=== PATIENT | male | born 1975 | race Caucasian/White ===

== ENCOUNTER 2018-01-06 04:07 | Inpatient (IN) | payer MEDICAID ==
[~2018-01-06] VITALS: Ht 182.9 cm; Wt 90.5 kg
[2018-01-06] MEDS ORDERED: HYDROcodone/acetaminophen 10/325mg tab PO ONE (04:55)
[2018-01-06] MEDS ORDERED: piperacillin/tazo 3.375gm/50ml 50 ML IV ONE (05:50)
[2018-01-06] MEDS ORDERED: TETanus/Pertussis (Acell)/Diphther VAC/PF (Tdap-Adult) 0.5ml syringe IM ONE (05:50)
[2018-01-06] MEDS ORDERED: BUPIVAcaine/PF 2.5 mg/ml (0.25%) 30ml vial IJ ONE (05:50)
[2018-01-06] MEDS ORDERED: normal saline 1000ML IV soln IV ONE (05:50)
[2018-01-06] MEDS ORDERED: vancomycin/NS 1 GM ADD-VANTAGE 250 ML IV ONE ×2 (05:50→13:14)
[2018-01-06 06:16] LABS: BASOPHILS # (AUTO) 0.1 X10'3 (0-0.2); BASOPHILS % (AUTO) 0.8 % (0-1); EOSINOPHILS # (AUTO) 0.3 X10'3 (0-0.9); EOSINOPHILS % (AUTO) 3.8 % (0-6); HEMATOCRIT 39.7 % (42.0-52.0); HEMOGLOBIN 13.8 g/dl (14.0-17.9); LYMPHOCYTES # (AUTO) 1.6 X10'3 (1.1-4.8); LYMPHOCYTES % (AUTO) 22.8 % (21-51); MEAN CORPUSCULAR HEMOGLOBIN 30.9 PG (27.0-31.0); MEAN CORPUSCULAR HGB CONC 34.7 % (33.0-36.5); MEAN CORPUSCULAR VOLUME 89.2 FL (78-98); MEAN PLATELET VOLUME 8.1 FL (7.4-10.4); MONOCYTES # (AUTO) 0.8 X10'3 (0-0.9); MONOCYTES % (AUTO) 11.8 % (2-12); NEUTROPHILS # (AUTO) 4.3 X10'3 (1.8-7.7); NEUTROPHILS % (AUTO) 60.8 % (42-75); PLATELET COUNT 152 X10'3 (140-440); RED BLOOD COUNT 4.45 X10'6 (4.70-6.10); RED CELL DISTRIBUTION WIDTH 13.2 % (11.5-14.5); WHITE BLOOD COUNT 7.1 X10'3 (4.5-11.0)
[2018-01-06 06:31] LABS: PARTIAL THROMBOPLASTIN TIME 29 SECONDS (22-32); PROTHROMBIN TIME 10.3 SECONDS (9.0-12.0)
[2018-01-06 06:34] LABS: ALANINE AMINOTRANSFERASE 46 U/L (12-78); ALBUMIN 3.5 G/DL (3.4-5.0); ALKALINE PHOSPHATASE 84 IU/L (46-116); ANION GAP 9 (8-16); ASPARTATE AMINO TRANSFERASE 34 U/L (10-37); BILIRUBIN,TOTAL 0.3 MG/DL (0.1-1.0); BLOOD UREA NITROGEN 17 MG/DL (7-18); BUN/CREATININE RATIO 21.3 (5.4-32.0); CALCIUM 8.6 MG/DL (8.5-10.1); CHLORIDE 106 MMOL/L (99-107); GLUCOSE 109 MG/DL (70-104); MAGNESIUM 1.9 MG/DL (1.5-2.4); POTASSIUM 3.6 MMOL/L (3.5-5.1); SODIUM 139 MMOL/L (135-145); TOTAL CARBON DIOXIDE 24.1 MMOL/L (24-32); eGFR > 90 ML/MIN
[2018-01-06] MEDS ORDERED: FLO0.4C PO (09:25)
[2018-01-06] MEDS ORDERED: FLU VACC QS2017-18 36MOS UP/PF 60 MCG/0.5 ML SYRINGE IMVAC ONE (09:35)
[2018-01-06] MEDS ORDERED: morphine 2 MG/ML inj. syringe IM ONE (14:15)
[2018-01-06 15:35] VITALS: BP 164/92
[2018-01-06] MEDS ORDERED: morphine 2 MG/ML inj. syringe IV PRN (17:15)
[2018-01-06] MEDS ORDERED: mag hydrox/Alum hydrox/simeth 30ml oral suspension PO PRN (18:20)
[2018-01-06] MEDS ORDERED: magnesium hydroxide 30ml (MOM) UD suspension PO PRN (18:20)
[2018-01-06] MEDS ORDERED: potassium Cl 40MEQ/NS 500ml 500 ML IV PRN ×2 (18:20)
[2018-01-06] MEDS ORDERED: ondansetron/PF 4mg/2ml inj IV PRN (18:20)
[2018-01-06] MEDS ORDERED: magnesium 4gm in 100ml NS 100 ML IV PRN (18:20)
[2018-01-06] MEDS ORDERED: acetaminophen 325mg tablet PO PRN (18:20)
[2018-01-06] MEDS ORDERED: potassium Cl 20 mEq SR tablet PO PRN ×2 (18:20)
[2018-01-06] MEDS ORDERED: magnesium 2GM in 50ml NS 50 ML IV PRN (18:20)
[2018-01-06] MEDS ORDERED: magnesium Cl slow-release 64mg tablet PO PRN (18:20)
[2018-01-06] MEDS ORDERED: morphine 2 MG/ML inj. syringe IV ONE (18:50)
[2018-01-06] MEDS: HYDROcodone/acetaminophen 5mg/325mg tablet PO PRN ×2 (19:32→23:49)
[2018-01-06 20:00] VITALS: BP 147/87
[2018-01-06] MEDS: vancomycin inj 1,250 MG in normal saline 250ml IV soln 250 ML IV SCH (20:48)
[2018-01-06] MEDS: tamsulosin 0.4mg capsule PO SCH (20:48)
[2018-01-06] MEDS: morphine 2 MG/ML inj. syringe IV PRN (20:49)
[2018-01-07] VITALS: BP 145/78
[2018-01-07] MEDS: vancomycin inj 1,250 MG in normal saline 250ml IV soln 250 ML IV SCH ×3 (04:33→20:18)
[2018-01-07] MEDS: morphine 2 MG/ML inj. syringe IV PRN ×4 (04:49→17:32)
[2018-01-07 05:31] LABS: BASOPHILS # (AUTO) 0.1 X10'3 (0-0.2); BASOPHILS % (AUTO) 0.7 % (0-1); EOSINOPHILS # (AUTO) 0.3 X10'3 (0-0.9); EOSINOPHILS % (AUTO) 3.7 % (0-6); HEMATOCRIT 40.8 % (42.0-52.0); HEMOGLOBIN 14.3 g/dl (14.0-17.9); LYMPHOCYTES # (AUTO) 1.6 X10'3 (1.1-4.8); LYMPHOCYTES % (AUTO) 19.3 % (21-51); MEAN CORPUSCULAR HEMOGLOBIN 31.1 PG (27.0-31.0); MEAN CORPUSCULAR HGB CONC 34.9 % (33.0-36.5); MEAN CORPUSCULAR VOLUME 88.9 FL (78-98); MONOCYTES # (AUTO) 0.7 X10'3 (0-0.9); MONOCYTES % (AUTO) 8.1 % (2-12); NEUTROPHILS # (AUTO) 5.7 X10'3 (1.8-7.7); NEUTROPHILS % (AUTO) 68.2 % (42-75); PLATELET COUNT 153 X10'3 (140-440); RED BLOOD COUNT 4.59 X10'6 (4.70-6.10); RED CELL DISTRIBUTION WIDTH 13.5 % (11.5-14.5); WHITE BLOOD COUNT 8.4 X10'3 (4.5-11.0)
[2018-01-07 05:49] LABS: ALBUMIN 3.1 G/DL (3.4-5.0); ANION GAP 6 (8-16); BLOOD UREA NITROGEN 10 MG/DL (7-18); BUN/CREATININE RATIO 12.5 (5.4-32.0); CALCIUM 8.7 MG/DL (8.5-10.1); CHLORIDE 104 MMOL/L (99-107); GLUCOSE 101 MG/DL (70-104); MAGNESIUM 1.6 MG/DL (1.5-2.4); SODIUM 138 MMOL/L (135-145); TOTAL CARBON DIOXIDE 27.8 MMOL/L (24-32); eGFR > 90 ML/MIN
[2018-01-07 07:00] VITALS: BP 136/78
[2018-01-07] MEDS: K and/or MAG REPLACEMENT MC SCH (07:15)
[2018-01-07] MEDS: HYDROcodone/acetaminophen 5mg/325mg tablet PO PRN ×3 (07:42→20:20)
[2018-01-07] MEDS ORDERED: LIDOcaine 1% 30ml vial IJ ONE (11:25)
[2018-01-07 20:00] VITALS: BP 128/83
[2018-01-07] MEDS: lactobacillus rhamnosus 10,000 MMU CELLS/CAPSULE PO SCH (20:17)
[2018-01-07] MEDS: tamsulosin 0.4mg capsule PO SCH (20:17)
[2018-01-07] MEDS ORDERED: VANCOMYCIN LEVEL IV ONE (20:30)
[2018-01-08] VITALS: BP 121/73
[2018-01-08] MEDS: HYDROcodone/acetaminophen 5mg/325mg tablet PO PRN ×4 (04:25→21:09)
[2018-01-08] MEDS: vancomycin inj 1,250 MG in normal saline 250ml IV soln 250 ML IV SCH (04:25)
[2018-01-08 05:03] LABS: BASOPHILS # (AUTO) 0.1 X10'3 (0-0.2); BASOPHILS % (AUTO) 0.7 % (0-1); EOSINOPHILS # (AUTO) 0.3 X10'3 (0-0.9); HEMATOCRIT 44.2 % (42.0-52.0); HEMOGLOBIN 15.1 g/dl (14.0-17.9); LYMPHOCYTES # (AUTO) 1.8 X10'3 (1.1-4.8); LYMPHOCYTES % (AUTO) 24.3 % (21-51); MEAN CORPUSCULAR HEMOGLOBIN 30.5 PG (27.0-31.0); MEAN CORPUSCULAR HGB CONC 34.2 % (33.0-36.5); MEAN CORPUSCULAR VOLUME 89.2 FL (78-98); MEAN PLATELET VOLUME 7.6 FL (7.4-10.4); MONOCYTES # (AUTO) 0.7 X10'3 (0-0.9); MONOCYTES % (AUTO) 9.1 % (2-12); NEUTROPHILS # (AUTO) 4.5 X10'3 (1.8-7.7); NEUTROPHILS % (AUTO) 61.9 % (42-75); PLATELET COUNT 182 X10'3 (140-440); RED BLOOD COUNT 4.96 X10'6 (4.70-6.10); RED CELL DISTRIBUTION WIDTH 13.6 % (11.5-14.5); WHITE BLOOD COUNT 7.3 X10'3 (4.5-11.0)
[2018-01-08 05:33] LABS: ALBUMIN 3.1 G/DL (3.4-5.0); ANION GAP 8 (8-16); BLOOD UREA NITROGEN 14 MG/DL (7-18); BUN/CREATININE RATIO 17.5 (5.4-32.0); CALCIUM 8.8 MG/DL (8.5-10.1); CHLORIDE 103 MMOL/L (99-107); GLUCOSE 102 MG/DL (70-104); MAGNESIUM 1.8 MG/DL (1.5-2.4); POTASSIUM 3.7 MMOL/L (3.5-5.1); SODIUM 140 MMOL/L (135-145); TOTAL CARBON DIOXIDE 28.8 MMOL/L (24-32); eGFR > 90 ML/MIN
[2018-01-08] MEDS: K and/or MAG REPLACEMENT MC SCH (06:33)
[2018-01-08 07:30] VITALS: BP 146/69
[2018-01-08] MEDS: lactobacillus rhamnosus 10,000 MMU CELLS/CAPSULE PO SCH ×2 (08:08→21:09)
[2018-01-08 12:13] VITALS: BP 119/69
[2018-01-08 20:00] VITALS: BP 121/72
[2018-01-08] MEDS: tamsulosin 0.4mg capsule PO SCH (21:09)
[2018-01-08] MEDS: heparin, porcine 5000 units/ml vial SQ SCH (21:10)
[2018-01-09] VITALS: BP 120/75
[2018-01-09] MEDS: HYDROcodone/acetaminophen 5mg/325mg tablet PO PRN ×2 (03:06→07:24)
[2018-01-09 05:21] LABS: BASOPHILS % (AUTO) 0.4 % (0-1); EOSINOPHILS # (AUTO) 0.3 X10'3 (0-0.9); EOSINOPHILS % (AUTO) 3.7 % (0-6); HEMATOCRIT 44.2 % (42.0-52.0); HEMOGLOBIN 15.5 g/dl (14.0-17.9); LYMPHOCYTES # (AUTO) 1.6 X10'3 (1.1-4.8); LYMPHOCYTES % (AUTO) 21.4 % (21-51); MEAN CORPUSCULAR HEMOGLOBIN 30.9 PG (27.0-31.0); MEAN CORPUSCULAR VOLUME 88.3 FL (78-98); MEAN PLATELET VOLUME 7.5 FL (7.4-10.4); MONOCYTES # (AUTO) 0.7 X10'3 (0-0.9); MONOCYTES % (AUTO) 9.7 % (2-12); NEUTROPHILS # (AUTO) 4.8 X10'3 (1.8-7.7); NEUTROPHILS % (AUTO) 64.8 % (42-75); PLATELET COUNT 190 X10'3 (140-440); RED BLOOD COUNT 5.01 X10'6 (4.70-6.10); RED CELL DISTRIBUTION WIDTH 13.5 % (11.5-14.5); WHITE BLOOD COUNT 7.4 X10'3 (4.5-11.0)
[2018-01-09 05:28] LABS: ANION GAP 7 (8-16); BLOOD UREA NITROGEN 16 MG/DL (7-18); BUN/CREATININE RATIO 21.9 (5.4-32.0); CALCIUM 8.9 MG/DL (8.5-10.1); CHLORIDE 105 MMOL/L (99-107); CREATININE 0.73 MG/DL (0.60-1.10); GLUCOSE 105 MG/DL (70-104); MAGNESIUM 1.8 MG/DL (1.5-2.4); POTASSIUM 3.9 MMOL/L (3.5-5.1); SODIUM 142 MMOL/L (135-145); TOTAL CARBON DIOXIDE 29.6 MMOL/L (24-32); eGFR > 90 ML/MIN
[2018-01-09] MEDS: K and/or MAG REPLACEMENT MC SCH (06:38)
[2018-01-09 07:18] VITALS: BP 127/82
[2018-01-09] MEDS: lactobacillus rhamnosus 10,000 MMU CELLS/CAPSULE PO SCH (07:24)
[2018-01-09] MEDS: heparin, porcine 5000 units/ml vial SQ SCH (07:25)
[2018-01-09 11:15] VITALS: BP 124/70
[2018-01-09] MEDS ORDERED: IBUP-1984 PO (12:23)
[2018-01-09] MEDS ORDERED: HYDR50CA PO (12:23)
[2018-01-09] MEDS ORDERED: DOXY-200 PO (12:23)
[2018-01-09] MEDS ORDERED: VANCOMYCIN LEVEL IV NR (12:30)
== END 2018-01-09 14:15 | disposition home or self-care (01) | DRG 384 ==
LOC: ER 04:07 → ED HOLD 13:06 → EDBEDREQ 13:45 → SUR 3N 15:28
PROVIDERS: ADMIT Internal Medicine; ATTEND Family Medicine
PROC: 0J9K0ZX Drainage of Left Hand Subcutaneous Tissue and Fascia, Open Approach, Diagnostic (ICD-10-PCS; principal; 2018-01-07)
DX: S61.213A Laceration without foreign body of left middle finger without damage to nail, initial encounter (principal); L02.512 Cutaneous abscess of left hand; L03.012 Cellulitis of left finger; M65.842 Other synovitis and tenosynovitis, left hand; T23.022A Burn of unspecified degree of single left finger (nail) except thumb, initial encounter; S61.211A Laceration without foreign body of left index finger without damage to nail, initial encounter; W26.0XXA Contact with knife, initial encounter; Z23 Encounter for immunization; Y93.89 Activity, other specified; Y92.89 Other specified places as the place of occurrence of the external cause; Y99.8 Other external cause status; Z79.899 Other long term (current) drug therapy
CPT/HCPCS: 36415; 80048; 80053; 80202; 83605; 83735; 84145; 85025; 85610; 85730; 87040; 87070; 87077; 87186; 90471; 90472; 90715; 96361; 96365; 96368; 99285; A6266; A6449; J1644; J2270; J2543; J3370; J3490; J7030; Q2037

== ENCOUNTER 2023-09-30 19:19 | Emergency (ER) | payer MEDICAID ==
[~2023-09-30] VITALS: Ht 182.9 cm; Wt 93.2 kg
[~2023-09-30 19:19] MED LIST: FLO0.4C PO; HYDR50CA PO
[2023-09-30] MEDS ORDERED: sulfamethoxazole/trimethoprim DS (800/160mg) tablet PO ONE (22:10)
[2023-09-30] MEDS ORDERED: SULF1TAB49 PO (22:24)
[2023-09-30 22:35] VITALS: BP 101/72; PULSE 102; RESP 18; TEMP 98.3; O2SAT 94
== END 2023-09-30 22:42 | disposition home or self-care (01) ==
LOC: ER 19:20
DX: M79.641 Pain in right hand (principal); L98.9 Disorder of the skin and subcutaneous tissue, unspecified; B95.8 Unspecified staphylococcus as the cause of diseases classified elsewhere
CPT/HCPCS: 73130; 87070; 87075; 99284; A6222; 87077; 87186; A6446

== ENCOUNTER 2023-11-27 17:54 | Emergency (ER) | payer SELFPAY ==
[~2023-11-27] VITALS: Ht 185.4 cm; Wt 90.9 kg
[2023-11-27] MEDS ORDERED: CLIN300C97 PO (19:28)
[2023-11-27 19:38] VITALS: BP 122/70; PULSE 80; RESP 16; TEMP 98.1; O2SAT 98
== END 2023-11-27 20:09 | disposition home or self-care (01) ==
LOC: ER 17:55
DX: L02.512 Cutaneous abscess of left hand (principal); Z79.899 Other long term (current) drug therapy
CPT/HCPCS: 10060; 26010; 99283; A6449

== ENCOUNTER 2024-02-20 15:22 | Emergency (ER) | payer MEDICAID ==
[2024-02-20 15:25] VITALS: BP 116/77; PULSE 107; RESP 17; TEMP 98.1; O2SAT 97
[2024-02-20] MEDS ORDERED: NAPR-56 PO (15:40)
[2024-02-20] MEDS ORDERED: DOXY-1 PO (15:40)
== END 2024-02-20 15:48 | disposition home or self-care (01) ==
LOC: ER 15:23
DX: K04.7 Periapical abscess without sinus (principal); Z79.899 Other long term (current) drug therapy
CPT/HCPCS: 99283

== ENCOUNTER 2025-06-19 14:37 | Emergency (ER) | payer MEDICAID ==
[~2025-06-19] VITALS: Ht 182.9 cm; Wt 77.7 kg
[~2025-06-19 14:37] MED LIST changes: -FLO0.4C PO; +TAMS-55 PO
[2025-06-19 14:42] VITALS: BP 116/85; PULSE 101; RESP 17; O2SAT 98
--- NOTE | 2025-06-19 15:08 | Physician Documentation ---
History of Present Illness ~ Chief Complaint: Finger pain Stated Complaint: FINGER PAIN Time Seen by MD: 15:11 OK to notify your PCP?: Yes Primary Medical Doctor: Rey Nascimento MD Source: patient Mode of Arrival: POV Exam Limitations: no limitations HPI 49-year-old male presents for infection to his right index finger after a crush injury to finger. He was seen at urgent care a couple of days ago and they lanced the wound and put him on Bactrim. The abscess seems to have filled back up and is very painful despite antibiotics. Tetanus within 5 years: Yes Medication Reconciliation Allergies: Coded Allergies: No Known Allergies (Unverified , 02/20/24) Scheduled Doxycycline Monohydrate (Doxycycline Monohydrate), 1 CAP PO Q12H Hydroxyzine Pamoate (Vistaril), 50 MG PO QID PRN Tamsulosin Hcl* (Flomax*), 1 CAP PO DAILY, (Reported) Past Medical History Past Medical History: *INFECTIOUS DZ* Past Surgical History: no surgical history Lives In: Home Review of Systems All Other Systems at this time: Reviewed and Negative Physical Exam Vital Signs: RN Vital Signs have been reviewed: Yes, Temperature: 97.3, Source: Temporal, Heart Rate: 101, Respiratory Rate: 17, BP: 116/85, Pulse Oximetry: 98, Weight: 77.690 Pulse Oximetry Reflects: adequate oxygenation Physical Exam General: Alert, no distress. HEENT: No injection, moist mucous membranes. Neck: Full range of motion. Respiratory: No respiratory distress, equal chest rise and fall. Chest: No accessory muscle use. Cardiovascular: Regular rate and rhythm. Gastrointestinal: Nondistended. Extremities: Right index finger swelling, pain and redness with open abscess to proximal phalange. Neurologic: Oriented x4. Psychiatric: Normal mood and affect. Skin: Normal color, warm and dry. Procedures I&D Procedure : Site: right index finger Procedure Note Performed I and D to patient's right index finger after soaking in warm water. Very little discharge came out which was bloody no purulent discharge noted so culture was not obtained. Patient tolerated well. Progress Results/Orders Reviewed/noted all lab results: Yes Results/Orders Orders - CARIN MÁRQUEZ SOFTWARE DEVELOPER MANAGER Finger(S) (06/19/25 15:05) * Additional Wound Care Orders (06/19/25 17:10) Completed Orders - CARIN MÁRQUEZ SOFTWARE DEVELOPER MANAGER Finger(S) (06/19/25 15:05) Acetaminophen 325mg Tablet (Tylenol Tabl (06/19/25 15:05) Ibuprofen Tablet (Motrin Tablet) (06/19/25 15:05) Lidocaine 1% W/Epi 1:100,000 (Xylocaine (06/19/25 17:10) Doxycycline 100mg Capsule (Vibramycin 10 (06/19/25 19:12) Medications Received in ER Medications (Trade) Dose Ordered Sig/Stanley Route PRN Reason Start Time Stop Time Status Last Admin Dose Admin (Tylenol tablet) 650 mg ONCE ONCE PO 06/19/25 15:05 06/19/25 15:10 DC 06/19/25 15:54 650 MG (Motrin tablet) 400 mg ONCE ONCE PO 06/19/25 15:05 06/19/25 15:10 DC 06/19/25 15:54 400 MG Vital Signs 06/19/25 06/19/25 14:42 19:17 Temp 97.3 97.3 Pulse 101 Resp 17 B/P (MAP) 116/85 Pulse Ox 98 EKG/XRAY/CT/US/VASC/MRI Bone/Soft Tissue X-Ray (Spine) : Interpreted By: self Additional Comment right index finger X-ray as interpreted by me; no joint effusion, no acute fracture, no dislocation, or foreign body. Medical Decision Making Additional info obtained from: family Findings 49-year-old male presents with right index finger pain, swelling and redness for the past few days after crushing his finger between a box and a wood plank. He was seen at urgent care 2 days ago where they did a I and D and placed him on 10 days Bactrim. He states that finger was decreased in size after the drainage but then worsened over the past 2 days. He states that it looks worse now than when he originally presented to urgent care. He does have a history of MRSA. The finger x-ray shows no acute fracture or foreign body. I discussed this case with Dr. Sterling who examined the patient as well. We all discussed the options for treatment such as redo the incision and drainage, obtain a wound culture and place on different antibiotics to be discharged home or to admit to the hospital for IV antibiotics. Patient opted for the outpatient approach and does not want to be admitted at this time. We discussed that if this option does not work and gets worse in the next couple of days and he will need to return for admission for IV antibiotics. Dr. Del Valle was oncoming MD who examined pt finger prior to I&D, recommends starting doxycycline. Had a wound culture done 2 years ago for an infection in the exact same finger and he was resistant to Bactrim. So we discussed that he needs to stop taking the Bactrim as he is likely going to be resistant to it again. Completed I&D with scant bloody discharge but no purulent drainage to culture. First dose of doxycycline given in the department and I sent rx to pharmacy. General Diff Dx:Considerations: Include: Hematoma, Neurovascular injury, Open fracture Finger Diff Dx:Considerations: Include: Fracture Departure Disposition: 01 HOME / SELF CARE / HOMELESS Impression: Primary Impression: Abscess Condition: Stable Discharge Instructions: Abscess/Boil Additional Instructions: Keep wound clean and dry. It may continue to drain which is good. Start taking the doxycycline tomorrow morning and stop taking your Bactrim prescription., as you were resistant last time. If you notice any worsening of the wound or redness/streaking up the arm please return as you may need IV antibiotics and admission. Referrals: NO PRIMARY CARE PROVIDER (PCP) Prescriptions Doxycycline Monohydrate (Doxycycline Monohydrate) 100 Mg Capsule 1 CAP PO Q12H for 10 Days, #20 CAP Prov: CARIN MÁRQUEZ 06/19/25 Education Educated: Patient Educated regarding: diagnosis, treatment, prognosis, need for follow up Additional Comment Medical Screen Exam This patient recieved a medical screening examination. After reviewing the individual's medical complaints with presenting symptoms and performing an appro priate physical examination, it was determined that no immediate life- threatening emergency medical condition is present. This individual is also not a women having contractions. Signature Scribe Signature: . Attestation: Scribed for Carin Márquez by Carin Medrano NP . 06/19/25 19:18 Parts of this note were created using [employer] voice recognition software program. While efforts were made to correct any mistakes made by this voice recognition software program, nonsensical phrases may remain in this note. In addition, there may be errors and syntax, grammar, content and spelling. CARIN MÁRQUEZ [facility] Jun 19, 2025 15:08
[2025-06-19] MEDS: ibuprofen tablet 400 MG TABLET PO ONE (15:54)
--- NOTE | 2025-06-19 16:33 | RADIOLOGY REPORT ---
CLINICAL INDICATION: Trauma, pain TECHNIQUE: 3 radiographic views of the right 2nd digit were obtained. Comparison: None FINDINGS/IMPRESSION: There is no evidence of acute fracture or dislocation. The visualized joint space is well maintained. The alignment is anatomical. There is no radiopaque foreign body.
[2025-06-19] MEDS: LIDOcaine 1% W/epiNEPHrine 1:100,000 20ml vial IJ STA (17:37)
[2025-06-19] MEDS ORDERED: DOXY-460 PO (19:13)
[2025-06-19 19:17] VITALS: TEMP 97.3
[2025-06-19] MEDS: DOXYCYCLINE 100MG CAPSULE PO STA (19:37)
== END 2025-06-19 19:39 | disposition home or self-care (01) ==
LOC: ER 14:37
DX: L02.511 Cutaneous abscess of right hand (principal); Z79.899 Other long term (current) drug therapy
CPT/HCPCS: 10060; 26010; 73140; 99284

== ENCOUNTER 2025-06-23 17:26 | Inpatient (IN) | payer MEDICAID ==
[~2025-06-23] VITALS: Ht 188 cm; Wt 100.0 kg
[~2025-06-23 17:26] MED LIST changes: +DOXY-460 PO
--- NOTE | 2025-06-23 19:59 | Physician Documentation ---
History of Present Illness ~ Chief Complaint: Wound Re-Check Stated Complaint: RE-EVAL Time Seen by MD: 19:01 Primary Medical Doctor: Rey Nascimento MD HPI Patient is Seen today with complaints of worsening pain and swelling and redness of his right index finger. Patient states he sustained a crush type injury to his right index finger about nine days ago. Couple of days after that he developed infection like symptoms with redness and swelling and warmth of his right index finger. Patient was started on antibiotics about 3-5 days ago without any improvement of symptoms and patient states his pain and swelling and redness has actually gotten worse. Patient denies any fevers or chills. He has no other concern or complaint at this time. Tetanus within 5 years?: Yes Medication Reconciliation Allergies: Coded Allergies: No Known Allergies (Unverified , 02/20/24) Miscellaneous Medications Home Med List (No Home Medications), (Reported) Discontinued Medications Doxycycline Monohydrate (Doxycycline Monohydrate), 1 CAP PO Q12H Discontinued Reason: completed med therapy Hydroxyzine Pamoate (Vistaril), 50 MG PO QID PRN Discontinued Reason: completed med therapy Tamsulosin Hcl* (Flomax*), 1 CAP PO DAILY, (Reported) Discontinued Reason: Out of medication Past Medical History Past Medical History: *INFECTIOUS DZ* Past Surgical History: no surgical history Lives In: Home Review of Systems Constitutional: Denies: chills, fever, weakness Eyes: Denies: pain, blurred vision ENT: Denies: ear pain, nose pain, throat pain, mouth pain Respiratory: Denies: cough, shortness of breath Cardiovascular: Denies: chest pain, palpitations Gastrointestinal: Denies: abdominal pain, nausea, vomiting Genitourinary: Denies: burning, dysuria Male Genitalia: Denies: penile discharge, testicular pain Neurological: Denies: headache, dizziness Musculoskeletal: Denies: pain, swelling Integumentary: Denies: rash, lesions Allergic/Immunologic: Denies: hives, itching Hematologic/Lymphatic: Denies: no symptoms reported Psychiatric: Denies: depression, anxiety Physical Exam Vital Signs: Temperature: 98.2, Source: Oral, Heart Rate: 94, Respiratory Rate: 14, BP: 128/87, Pulse Oximetry: 98, Weight: 100.000 Oxygen Flow Rate: 0 Physical Exam General: Awake and Alert, no acute distress. HEENT: Conjunctiva pink, Sclera clear, Mucus Membranes moist. Neck: Supple without masses and tenderness. Resp: Unlabored. Lungs clear to auscultation bilaterally. Heart: Regular Rate and rhythm, normal S1 and S2 without murmur, rub or gallop. Musculoskeletal: Patient on exam has significant sausage finger of the right index finger with significant swelling and erythema and warmth and purulent drainage from the ulnar aspect of the right index finger. Patient has open draining purulent drainage from middle and proximal phalanx of right index finger. Patient has tenderness to palpation proximally of the flexor tendon. Patient has decreased light touch sensation distally of the right index finger. Extremities: No cyanosis,clubbing or edema. Skin: Warm and Dry. Progress Results/Orders Results/Orders Orders - YOLIS CRUMP PAC Saline Lock (06/23/25 ) Piperacillin/Tazo 3.375gm/50ml (Zosyn 3. (06/23/25 19:58) Culture Blood (06/23/25 19:58) Page Hospitalist (06/23/25 20:24) Fill Out Med Reconciliation (06/23/25 20:24) Completed Orders - YOLIS CRUMP PAC Vancomycin*Pharmacy To Dose* (Vancomycin (06/23/25 19:58) Ketorolac Trometh 30mg/Ml Vial (Toradol (06/23/25 19:58) Acetaminophen 1,000mg/100ml Iv (Ofirmev (06/23/25 19:58) Cbc/Diff (06/23/25 19:58) MG (06/23/25 19:58) Procalcitonin (06/23/25 19:58) BMP (06/23/25 19:58) Lacticsepsis (06/23/25 19:58) Vancomycin/Ns 1 Gm Add-Forreston (Vancomyc (06/23/25 21:00) Medications Received in ER Medications (Trade) Dose Ordered Sig/Stanley Route PRN Reason Start Time Stop Time Status Last Admin Dose Admin (Toradol inj. 30mg/ml) 30 mg ONCE STAT IV 06/23/25 19:58 06/23/25 20:10 DC 06/23/25 21:24 30 MG Acetaminophen 100 ml @ 400 mls/hr ONCE STAT IV 06/23/25 19:58 06/23/25 20:12 DC 06/23/25 21:24 400 MLS/HR Vancomycin HCl 250 ml @ 166 mls/hr ONCE ONCE IV 06/23/25 21:00 06/23/25 22:30 DC 06/23/25 22:34 166 MLS/HR Vital Signs 06/23/25 17:42 Temp 98.2 Pulse 94 Resp 14 B/P (MAP) 128/87 Pulse Ox 98 O2 Flow Rate 0 Laboratory Tests Test 06/23/25 20:06 06/23/25 20:09 White Blood Count 6.8 Red Blood Count 4.84 Hemoglobin 14.7 Hematocrit 42.5 Mean Corpuscular Volume 87.7 Mean Corpuscular Hemoglobin 30.4 Mean Corpuscular Hemoglobin Concent 34.7 Red Cell Distribution Width 13.4 Platelet Count 270 Mean Platelet Volume 7.1 L Neutrophils (%) (Auto) 57.4 Lymphocytes (%) (Auto) 29.6 Monocytes (%) (Auto) 9.3 Eosinophils (%) (Auto) 2.5 Basophils (%) (Auto) 1.2 H Neutrophils # (Auto) 3.9 Lymphocytes # (Auto) 2.0 Monocytes # (Auto) 0.6 Eosinophils # (Auto) 0.2 Basophils # (Auto) 0.1 CBC Comment Sodium Level 138 Potassium Level 3.6 Chloride Level 102 Carbon Dioxide Level 29.8 Anion Gap 6 L Blood Urea Nitrogen 15 Creatinine 0.83 Estimated GFR/1.73 m2 > 90 BUN/Creatinine Ratio 18.1 Glucose Level 98 Calcium Level 9.0 Magnesium Level 2.0 Albumin 3.4 Procalcitonin < 0.05 Chemistry Comments Lactic Acid Level 1.3 Microbiology Date/Time Source Procedure Growth Status 06/23/25 20:20 Blood Iv Start Blood Culture - Preliminary NEGATIVE (LESS THAN 24 HOURS) Resulted Medical Decision Making Findings Patient is Seen today with complaints of worsening pain and swelling and redness of his right index finger. Patient states he sustained a crush type injury to his right index finger about nine days ago. Couple of days after that he developed infection like symptoms with redness and swelling and warmth of his right index finger. Patient was started on antibiotics about 3-5 days ago without any improvement of symptoms and patient states his pain and swelling and redness has actually gotten worse. Patient denies any fevers or chills. He has no other concern or complaint at this time. I did consult with Dr. Colindres the instrument specialist surgeon on-call today and he recommended patient be seen by Dr. Coats the hand surgeon tomorrow. Patient was admitted to the hospital today and hospitalist was consulted. Patient was started on Zosyn and vancomycin dosed by the pharmacist. IV was started and Tylenol and Toradol administered IV. Digital block with lidocaine without epinephrine was performed by myself today of the affected finger and after which wound was cleansed by nursing staff and then dressed. Departure Disposition: ADMITTED INPATIENT Admitted to Inpatient Unit: to hospitalist Admission Level of Care: Med/Surg with Tele Impression: Primary Impression: Cellulitis Qualified Codes: L03.113 - Cellulitis of right upper limb Condition: Improved Additional Instructions: I did consult with Dr. Colindres the instrument specialist surgeon on-call today and he recommended patient be seen by Dr. Coats the hand surgeon tomorrow. Patient was admitted to the hospital today and hospitalist was consulted. Patient was started on Zosyn and vancomycin dosed by the pharmacist. IV was started and Tylenol and Toradol administered IV. Digital block with lidocaine without epinephrine was performed by myself today of the affected finger and after which wound was cleansed by nursing staff and then dressed. Referrals: NO PRIMARY CARE PROVIDER (PCP) Signature Scribe Signature: No scribe Attestation: No scribe YOLIS CRUMP PAC Jun 23, 2025 19:59
[2025-06-23 20:15] LABS: MEAN PLATELET VOLUME 7.1 FL (7.4-10.4); RED CELL DISTRIBUTION WIDTH 13.4 % (11.5-14.5)
[2025-06-23 20:29] LABS: CREATININE 0.83 MG/DL (0.60-1.10); TOTAL CARBON DIOXIDE 29.8 MMOL/L (24-32); eCRCL 117 ML/MIN; eGFR > 90 ML/MIN
[2025-06-23] MEDS ORDERED: potassium Cl 20 mEq SR tablet PO PRN (21:10)
[2025-06-23] MEDS ORDERED: mag hydrox/Alum hydrox/simeth 30ml oral suspension PO PRN (21:10)
[2025-06-23] MEDS ORDERED: potassium Cl 40MEQ/1/2NS 520ml 520 ML IV PRN (21:10)
[2025-06-23] MEDS ORDERED: ondansetron/PF 4mg/2ml inj IV PRN (21:10)
[2025-06-23] MEDS ORDERED: magnesium Cl slow-release 64mg tablet PO PRN (21:10)
[2025-06-23] MEDS ORDERED: magnesium sulf-water 4G/100mL 100 ML IV PRN (21:10)
[2025-06-23] MEDS ORDERED: magnesium sulf-water 2g/50mL 50 ML IV PRN (21:10)
[2025-06-23] MEDS: piperacillin/tazo 3.375gm/50ml 50 ML IV STA (21:17)
[2025-06-23] MEDS: acetaminophen 1,000mg/100ml IV 100 ML IV STA (21:24)
[2025-06-23] MEDS: ketorolac trometh 30MG/ML vial 30 MG/ML VIAL IV STA (21:24)
[2025-06-23] MEDS: piperacillin/tazo 3.375gm/50ml 50 ML IV ONE (21:57)
--- NOTE | 2025-06-23 22:15 | HISTORY AND PHYSICAL-Residence ---
History & Physical Providers to CC Resident Creating Document: CA BRICENO RES ~ History of Present Illness Primary Medical Doctor: Rey Nascimento MD Reason for Admit\Complaint: RIGHT INDEX FINGER CELLULITIS History of Present Illness 49-year-old male with no significant past medical history presented to the ED with chief complaint of worsening pain redness and swelling of the right index finger for the past one week. He injured his right index finger last Saturday when he smashed in between boxes, he has been to urgent care and was given antibiotics with minimal relief, came to [facility] ED on Saturday I&D was done and was discharged on doxycycline. His symptoms did not improve, swelling and redness kept getting worse and hence he decided to come to the ED today. Complains of 8/10 pain. Denies associated symptoms like fever, chest pain, dizziness, chills, nausea, vomiting, diarrhea or constipation. Denies smoking or drinking alcohol. Follows up with primary care provider Celena at [facility]. Discussed advanced care directives and he wishes to be a full code. Allergies: Coded Allergies: No Known Allergies (Unverified , 02/20/24) Home Medications Home Medications Active Doxycycline Monohydrate 100 Mg Capsule 1 Cap PO Q12H 10 Days Vistaril (Hydroxyzine Pamoate) 50 Mg Capsule 50 Mg PO QID PRN 10 Days Reported Flomax* (Tamsulosin HCl) 0.4 Mg Cap.sr.24h 1 Cap PO DAILY 30 Days Past Medical History Past Medical History None Past Surgical History Surgical History Comment none Past Social History Lives In: Home ROS ROS Reviewed in full. All negative except for pertinent positive HPI. Constitutional: Denies: chills, fever, weakness Eyes: Denies: pain, blurred vision ENT: Denies: ear pain, nose pain, throat pain, mouth pain Respiratory: Denies: cough, shortness of breath Cardiovascular: Denies: chest pain, palpitations Gastrointestinal: Denies: abdominal pain, nausea, vomiting Genitourinary: Denies: burning, dysuria Male Genitalia: Denies: penile discharge, testicular pain Neurological: Denies: headache, dizziness Musculoskeletal: Denies: pain, swelling Integumentary: Denies: rash, lesions Allergic/Immunologic: Denies: hives, itching Hematologic/Lymphatic: Denies: no symptoms reported Psychiatric: Denies: depression, anxiety Exam Vitals: Vital Signs Date Time Temp Pulse Resp B/P (MAP) Pulse Ox O2 Delivery O2 Flow Rate FiO2 06/23/25 21:37 76 15 137/92 (107) 100 0 06/23/25 17:42 98.2 General: General: Awake and Alert, no acute distress. HEENT: Conjunctiva pink, Sclera clear, Mucus Membranes moist. Neck: Supple without masses and tenderness. Resp: Unlabored. Equal breath sounds bilaterally. Heart: Regular rhythm, normal S1 and S2, no rub, murmur or gallop. Abdomen: Soft and non tender no organomegaly. Normal bowel sounds x4 quadrant normoactive. No guarding or rigidity. Extremities: Right index finger erythema, edema with purulent discharge. Restricted range of motion of the right index finger. No cyanosis. ONLINE COMMUNITY MANAGER: No gross motor or sensory abnormalities. Skin: Warm and Dry. Diagnostic Data Last Recorded Lab Results: 06/24/25 0423 06/24/25 0423 Advance Care Planning Advanced Care plannin - 30 Minutes Additional Plan 49-year-old male with no significant past medical history presented to the ED with chief complaint of worsening pain redness and swelling of the right index finger for the past one week. Right index finger cellulitis Failed outpatient antibiotics History of MRSA in the past Labs unremarkable, lactic acid and procalcitonin normal limits Finger x-ray on 06/19/2025 no evidence of fracture/dislocation alignment anatomical. No Foreign body noted Follow up with CT right hand to look for underlying abscess Received IV vanc and Zosyn in the ED Continue IV vancomycin and zosyn Wound care consulted Follow up with wound cultures, blood cultures, UA UTox ED physician contacted Dr. Colindres, who recommended to contact Dr. Coats in a.m. Consult ortho in a.m. Awaiting med rec Code Status: Full code DVT prophylaxis: Lovenox Analgesia/sedation: Morphine/Sherman Line/tube: PIV GI prophylaxis: None Nutrition: Regular diet, NPO after midnight Prognosis: Guarded Disposition: Continue medical management. Ca Briceno MD. IM Resident PGY-3 Addendum I personally reviewed the chart, labs and imaging and reviewed the patient with the team. I agree with the assessment and plan as documented by the resident. Patient was seen through remote audio-visual assessment through HIPAA compliance setup. Date of Service: Jun 23, 2025 Billing Provider: LILLIE FORD MD, ELIZABETH, [facility] Jun 23, 2025 22:15 LILLIE FORD MD Jun 25, 2025 04:04
[2025-06-23] MEDS: vancomycin/NS 1 GM ADD-VANTAGE 250 ML X 1 DOSE IV ONE (22:34)
[2025-06-23] MEDS ORDERED: NO HOME MEDS (23:07)
[2025-06-23] MEDS: normal saline 1000ml 1,000 ML IV SCH (23:22)
[2025-06-23] MEDS: LIDOcaine 1% 30ml preserv. free vial IJ STA (23:22)
[2025-06-23] MEDS: HYDROcodone/acetaminophen 5mg/325mg tablet PO PRN (23:23)
[2025-06-23 23:44] VITALS: BP 137/82; PULSE 79; RESP 16; TEMP 97.4; O2SAT 99
[2025-06-24] VITALS (7 sets, daily range): BP systolic 113–133; BP diastolic 62–86; PULSE 70–97; RESP 14–18; TEMP 97.3–98.8; O2SAT 97–99
[2025-06-24 04:44] LABS: MEAN PLATELET VOLUME 7.2 FL (7.4-10.4); RED CELL DISTRIBUTION WIDTH 13.4 % (11.5-14.5)
[2025-06-24] MEDS: vancomycin/NS 1 GM ADD-VANTAGE 250 ML IV SCH (04:54)
[2025-06-24 05:02] LABS: CREATININE 0.91 MG/DL (0.60-1.10); PHOSPHORUS 3.3 MG/DL (2.3-4.5); TOTAL CARBON DIOXIDE 28.5 MMOL/L (24-32); eCRCL 107 ML/MIN; eGFR 88 ML/MIN
[2025-06-24] MEDS: K and/or MAG REPLACEMENT MC SCH (08:00)
[2025-06-24] MEDS: enoxaparin 40mg/0.4ml syringe SUBCUT SCH (08:00)
[2025-06-24] MEDS: piperacillin/tazo 3.375gm/50ml 50 ML IV SCH (08:46)
--- NOTE | 2025-06-24 12:55 | RADIOLOGY REPORT ---
Procedure: CT CT UPPER EXTREMITIES 06/24/2025 11:11 AM Indication: right index finger cellulitis Comparison Study: None Technique: Multidetector spiral CT was performed. Radiation dose : CTDIvol 25 mGy, DLP 812 mGy*cm. FINDINGS: Diffuse soft tissue swelling of the 2st digit starting at the level of the mid proximal phalanx exten ding distally. There is no subcutaneous emphysema or abscess. There is no fracture or osseus erosion. The soft tissues proximately within the wrist are unremarkable. The image tendons are within normal l imits. IMPRESSION: 1. Diffuse soft tissue swelling of 2nd digit without fracture or CT evidence of osteomyelitis.
[2025-06-24] MEDS: potassium Cl 20 mEq SR tablet PO PRN (13:37)
--- NOTE | 2025-06-24 13:50 | PROGRESS NOTE ---
Daily Progress Note Providers to CC ~ Antibiotic Timeout Antibiotic Ordered?: Yes Subjective No acute events overnight. Patient examined at bedside. No new complaints not in acute distress. Patient denies chest pain, sob, palpitations, abdominal pain, n/v/d. Vss, labs unremarkable. CT shows cellulitis without evidence of abscess. Awaiting MRI. Objective Vital Signs Date Time Temp Pulse Resp B/P (MAP) Pulse Ox O2 Delivery O2 Flow Rate FiO2 06/24/25 11:07 Room Air 06/24/25 10:00 97.3 97 18 113/80 (91) 98 06/23/25 21:37 0 Result Diagram: 06/24/2542206/24/25422 Physical Exam General: A&Ox 3, NAD HEENT: Normocephalic, PERRLA Neck: Supple, trachea midline, no JVD Chest: Clear to auscultation bilaterally Cardiovascular: RRR, S1&S2 GI: Soft and nontender Extremities: No cyanosis/clubbing/or edema CUSTOMER EXPERIENCE PROFESSIONAL: CN II-XII intact, no focal deficits Musculoskeletal: Limited active/passive ROM of right index finger Skin: Right 2nd distal phalanx ulceration w/o drainage Problem\Assessment\Plan 49-year-old male with no significant past medical history presented to the ED with chief complaint of worsening pain redness and swelling of the right index finger x 1 week. Assessment & Plan Cellulitis, right 2nd distal phalanx, failed outpatient antibiotics Tensynovitis- POA History of MRSA -lactic acid wnl, procal neg, CT shows cellulitis without evidence of abscess, pending MRI, consulted orthopedic surgeon Dr. Coats -continue vanco/Zosyn Code Status: Full code DVT/VTE prophylaxis: Lovenox Date of Service: Jun 24, 2025 Billing Provider: AIXA ROYAL Common Visit Codes: [id number] INP/OBS CARE(HIGH) AIXA ROYAL Jun 24, 2025 13:50
[2025-06-24] MEDS: HYDROcodone/acetaminophen 10/325mg tab PO PRN (17:28)
[2025-06-24] MEDS: GADOTERATE MEGLUMINE 7.5 MMOL/15 ML VIAL IV ONE (17:38)
--- NOTE | 2025-06-24 17:53 | RADIOLOGY REPORT ---
EXAM: MR MRI UPPER EXTREMITY RIGHT INDICATION: r/o osteomyelitis, abscess TECHNIQUE: Multiplanar, multisequence imaging of the upper extremity with and without contrast COMPARISON: None FINDINGS: BONES: No MR evidence of an acute fracture, osseous contusion, or aggressive focal osseous lesion. De grees of incomplete fat suppression along the distal phalanx. MUSCLES: Normal signal intensity and morphology. TENDONS: Intact. LIGAMENTS: Intact. JOINT SPACES: No joint effusion. NEUROVASCULAR: Normal. OTHER: Soft tissue swelling with edema and enhancement compatible with surrounding phlegmon. Focal a steve of presumed inconspicuous abscess /ulceration measuring 0.8 cm (series 11, image 34). Abscess /ul ceration along the dorsal ulnar aspect of the index finger at the level of the middle phalanx. IMPRESSION: 1. Abscess /ulceration along the dorsal ulnar aspect of the index finger at the level of the middle p halanx. 2. No MR evidence of osteomyelitis.
[2025-06-24] MEDS: VANCOMYCIN LEVEL IV ONE (21:30)
[2025-06-25 04:45] LABS: MEAN PLATELET VOLUME 7.2 FL (7.4-10.4); RED CELL DISTRIBUTION WIDTH 13.3 % (11.5-14.5)
[2025-06-25 05:09] LABS: CREATININE 0.88 MG/DL (0.60-1.10); PHOSPHORUS 3.2 MG/DL (2.3-4.5); TOTAL CARBON DIOXIDE 28.0 MMOL/L (24-32); eCRCL 110 ML/MIN; eGFR > 90 ML/MIN
[2025-06-25 06:00] VITALS: BP 120/73; PULSE 70; RESP 18; TEMP 97.7; O2SAT 96
[2025-06-25 07:22] VITALS: BP 120/73; PULSE 70; RESP 18; TEMP 97.7; O2SAT 96
[2025-06-25 10:00] VITALS: BP 125/85; PULSE 75; RESP 16; TEMP 97.1; O2SAT 96
--- NOTE | 2025-06-25 13:09 | PROGRESS NOTE ---
Daily Progress Note Providers to CC ~ Antibiotic Timeout Antibiotic Ordered?: Yes Subjective No acute events overnight. Patient examined at bedside. No new complaints not in acute distress. Patient denies chest pain, sob, palpitations, abdominal pain, n/v/d. Vss, labs unremarkable. CT shows cellulitis without evidence of abscess. A subsequent MRI shows abscess along the dorsal ulnar aspect of the index finger at the level of the middle phalanx without evidence of osteomyelitis. Consulted orthopedic surgeon Dr. Coats OR tomorrow for I&D, ID Dr. Chery consulted, started on oral linezolid. 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 Assessment & Plan Cellulitis, right 2nd distal phalanx, failed outpatient antibiotics Tensynovitis- POA History of MRSA -lactic acid wnl, procal neg, CT shows cellulitis without evidence of abscess, pending MRI, consulted orthopedic surgeon Dr. Coats -continue vanco/Zosyn -06/25: MRI shows abscess along the dorsal ulnar aspect of the index finger at the level of the middle phalanx without evidence of osteomyelitis. -Consulted orthopedic surgeon Dr. Coats OR tomorrow for I&D, ID Dr. Chery consulted, started on oral linezolid Code Status: Full code DVT/VTE prophylaxis: Lovenox Date of Service: Jun 25, 2025 Billing Provider: AIXA ROYAL Common Visit Codes: 22961-[id number] INP/OBS CARE(HIGH) AIXA ROYAL Jun 25, 2025 13:09
[2025-06-25] MEDS ORDERED: VANCOmycin 1250MG/NS 250ml Bag 250 ML IV SCH (14:00)
--- NOTE | 2025-06-25 15:19 | CONSULTATION REPORT ---
History of Present Illness Providers to CC ~ Reason for Admit\Admit Dx: RIGHT INDEX FINGER CELLULITIS Refering MD: Dr Kwon History of Present Illness Patient is a 49 yr old man with complaints of worsening pain and swelling and redness of his right index finger. Patient states he sustained a crush type injury to his right index finger about nine days ago. Couple of days after that he developed infection like symptoms with redness and swelling and warmth of his right index finger. Patient was started on antibiotics about 3-5 days ago without any improvement of symptoms and patient states his pain and swelling and redness has actually gotten worse. Patient denies any fevers or chills. He has no other concern or complaint at this time. Tetanus within 5 years?: Yes Allergies: Coded Allergies: No Known Allergies (Unverified , 02/20/24) Home Medications Home Medications Active Reported No Home Medications (Home Med List) Each Past Family History Family History: Patient reports no known family medical history. Physical Exam Last Vital Signs Recorded: Temperature: 97.7, Source: Oral, Heart Rate: 70, Respiratory Rate: 16, BP: 120/73, Pulse Oximetry: 96, Weight: 100.000 General Appearance: alert, no apparent distress Respiratory: lungs clear Cardiovascular: normal peripheral pulses Extremities R index swelling open wound dorsal middle segment, tip viable, tendons appear intact, tender abscess area noted, PIP non irritable Results Results/Orders Results/Orders CT< MRI shows abscess, no bone involvement Diagram Lab Result Diagram: 06/25/2541906/25/25 042 Assessment/Plan Problems/Diagnosis: (1) Cellulitis (2) Abscess Additional Plan will need operative intervention for evacuation and debridement of abscess. will perform in AM Problem Qualifiers (1) Cellulitis: Qualified Codes: L03.113 - Cellulitis of right upper limb CARLOS ALBERTO NIX Jr., MD Jun 25, 2025 15:19
[2025-06-25 18:00] VITALS: BP 130/71; PULSE 73; RESP 15; TEMP 97.5; O2SAT 99
[2025-06-25 22:00] VITALS: BP 112/70; PULSE 82; RESP 22; TEMP 98.5; O2SAT 95
[2025-06-26] VITALS (15 sets, daily range): BP systolic 120–134; BP diastolic 71–92; PULSE 64–78; RESP 13–20; TEMP 96.8–97.9; O2SAT 78–100
[2025-06-26 05:54] LABS: MEAN PLATELET VOLUME 7.2 FL (7.4-10.4); RED CELL DISTRIBUTION WIDTH 13.2 % (11.5-14.5)
--- NOTE | 2025-06-26 06:13 | ELECTROCARDIOGRAPH REPORT ---
[facility] Test Date: 2025-06-26 Test Time: 04:10:29 Pat Name: SAURABH ETIENNE Department: Room: [address] Gender: M Chassis Wirer: : 1975 Requested By: AIXA ROYAL Order Number: [id number] Reading MD: Dr. Danie Perez Measurements Intervals [place] Rate: 68 P: 20 TX: 144 QRS: 35 QRSD: 90 T: 25 QT: 394 QTc: 418 Interpretive Statements Normal sinus rhythm Abnormal R-wave progression, delayed precordial transition Electronically Signed On 06-26-2025 12:04:[address] Danie Perez Please click the below link to view image of tracing.
[2025-06-26 06:18] LABS: CREATININE 0.75 MG/DL (0.60-1.10); PHOSPHORUS 3.8 MG/DL (2.3-4.5); TOTAL CARBON DIOXIDE 27.4 MMOL/L (24-32); eCRCL 137 ML/MIN; eGFR > 90 ML/MIN
[2025-06-26] MEDS ORDERED: BUPIVAcaine 2.5mg/ml inj 50ml vial (contains preservative) ONE (07:52)
[2025-06-26] MEDS ORDERED: MIDAZolam 1 MG/ML 5ML VIAL ONE (08:04)
[2025-06-26] MEDS ORDERED: fentaNYL/PF 50MCG/1 ML 2ML syringe ONE (08:04)
[2025-06-26] MEDS ORDERED: LIDOcaine 2% (20mg/ml) 5ml vial ONE (08:23)
[2025-06-26] MEDS ORDERED: propofol inj 20 ML IV ONE (08:23)
[2025-06-26] MEDS ORDERED: enalaprilat 1.25mg/ml 2ml vial IV PRN (08:30)
[2025-06-26] MEDS ORDERED: meperidine/PF 25mg/ml syringe IV PRN ×3 (08:30)
[2025-06-26] MEDS ORDERED: morphine 4 MG/ML inj SYRINge IV PRN (08:30)
[2025-06-26] MEDS ORDERED: ondansetron/PF 4mg/2ml inj IV PRN (08:30)
[2025-06-26] MEDS: ringers solution, lacted 1,000 ML IV SCH (08:30)
[2025-06-26] MEDS ORDERED: labetalol 20mg/4ml (5mg/ml) syringe IV PRN (08:30)
--- NOTE | 2025-06-26 08:31 | OPERATIVE REPORT ---
Operative Report Providers to ~ Date of Procedure: Jun 26, 2025 Pre-Operative Diagnosis: Right index finger abscess Post-Operative Diagnosis SAME as PRE-Op Procedure Performed Incision and drainage of right index finger abscess Surgeon: Agus Coats MD Internal Medicine Nurse Practitioner None Anesthesiologist: Larry Burden Type of Anesthesia: Other Findings: . Skin and subcutaneous tissue infection Estimated Blood Loss: None Specimen Removed: Deep wound culture Description of Procedure: The patient is a 49-year-old man who initially injured his finger and a crushing type injury. He then presented several days ago to the emergency department with a what appeared to be cellulitis. He was started on antibiotics but did no t improve. Then returned several days later and was admitted for a right index finger abscess. Surgery is indicated to eliminate infection. Risks and benefits were discussed with the patient. Some of the risks include but are not limited to further infection, bleeding, need for further surgery, possible bone involvement and possible amputation should this infection go to the deeper tissues. He agreed To proceed. Brought to the operating room where the sedation was given and the arm was prepped and draped in usual manner . A time-out procedure was observed and local anesthetic was infiltrated the base of the digit consisting of Marcaine and lidocaine without epi. A finger tourniquet was used and the skin was debrided up near the DIPJ joint of the index finger dorsal ulnar edge. After moving the skin there was an open wound and some purulent drainage from the subcutaneous tissues. A curette was used to scrape out tissues after deep culture was obtained. Nonviable tissue was excised as well. Thorough irrigation was then done with the Aricept solution and a back cut was made in order to open the wound completely. This incision was then loose with a closed with a single suture. The remainder of the wound was left open. Sterile dressing was then applied and the tourniquet was released. The finger perfused well and he was taken to the recovery room in stable condition. AGUS COATS Jr., MD Jun 26, 2025 08:31
[2025-06-26] MEDS: BUPIVAcaine/PF 2.5mg/ml (0.25%) 10ml vial IJ ONE (08:34)
[2025-06-26] MEDS ORDERED: LINE600T14 PO (11:07)
--- NOTE | 2025-06-26 12:05 | DISCHARGE SUMMARY ---
Discharge Summary Providers to CC ~ Discharge Summary Admission Diagnosis: Right index finger abscess Hospital Course DATE OF ADMISSION: 06/23/25 DATE OF DISCHARGE: 06/26/25 Discharge Diagnosis\\Comment: Cellulitis, right 2nd distal phalanx, failed outpatient antibiotics Tensynovitis History of MRSA Operations\\Procedures: I&D of right index finger abscess Consultants: Orthopedic surgeon Dr. Coats, [facility] Philip Mckeon Complications: None Condition on DC: Stable New Medications: Linezolid (Linezolid) 600 Mg Tablet 600 MG PO Q12H for 14 Days, #28 TAB Continued Medications: Home Med List (No Home Medications) Each Discharge Summary: History of Present Illness From H&P: "49-year-old male with no significant past medical history presented to the ED with chief complaint of worsening pain redness and swelling of the right index finger for the past one week. He injured his right index finger last Saturday when he smashed in between boxes, he has been to urgent care and was given antibiotics with minimal relief, came to [facility] ED on Saturday I&D was done and was discharged on doxycycline. His symptoms did not improve, swelling and redness kept getting worse and hence he decided to come to the ED today. Complains of 8/10 pain. Denies associated symptoms like fever, chest pain, dizziness, chills, nausea, vomiting, diarrhea or constipation. Denies smoking or drinking alcohol. Follows up with primary care provider Celena at [facility]." Hospital Course Elastic findings were notable for CT revealing cellulitis without evidence of abscess with subsequent MRI revealing abscess along the dorsal ulnar aspect of right index finger at the level of middle phalanx without evidence of osteomyelitis. Pertinent negative findings were no signs of sepsis including normal lactic acid and negative procal. Patient was started on empirical antibiotics. Case was consulted with orthopedic surgeon Dr. Coats and ID Dr. Chery. Patient underwent I&D of right index finger abscess without complication and was started on oral linezolid per ID recommendation. Patient did not experience further complications throughout the entire hospital stay and made a good recovery. Patient was seen and examined on the day of discharge. On day of discharge, vss and labs unremarkable. All labs, diagnostic workups, discharge plan discussed with patient in details during visit before discharge. All questions and concerns answered to the best of my professional knowledge. Patient is to be discharged to home to self and to follow-up with PCP and ID Dr. Chery within two weeks. Patient is discharged with w week course of Zyvox per ID recommendation. 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
[2025-06-26] MEDS ORDERED: VANCOMYCIN LEVEL IV ONE (13:30)
--- NOTE | 2025-06-26 23:31 | CONSULTATION ---
DATE OF CONSULTATION: 06/25/2025 DICTATING PHYSICIAN: Philip Chery MD REASON FOR CONSULTATION: I am seeing the patient at the request of Kristopher Macias for evaluation of an infection involving the right index finger. 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 He states that he smashed his finger about 10 days ago. He believes he has had a visit to an urgent care clinic as well as the ER since that time. He had been placed on doxycycline at one point and later he was placed on Bactrim. He states that neither one of these antibiotics was leading to improvement. He states that the area was opened up in the ER. He is waiting to see if Dr. Coats is planning to take him to the operating room or not. PAST MEDICAL HISTORY: He states that he is healthy at baseline, although he has had past soft tissue infections. Based on cultures at this facility, he has grown out both MRSA and MSSA on different occasions over the past several years. ALLERGIES: None. MEDICATIONS: * Vancomycin. * Zosyn. * Lovenox. FAMILY HISTORY: Noncontributory. SOCIAL HISTORY: He has an address in [place], although he states that he lives up in [place] right now. He does not smoke or drink alcohol. PHYSICAL EXAMINATION: VITAL SIGNS: He is afebrile with stable vital signs. GENERAL: He is a pleasant middle-aged male, lying in bed, looking stable. HEENT: Sclerae anicteric. Mouth is clear. NECK: Supple. LUNGS: Clear to auscultation bilaterally. HEART: Regular rate and rhythm. ABDOMEN: Soft, nontender, and nondistended. EXTREMITIES: His right index finger has an open wound near the DIP joint. The wound is more at the dorsal aspect on the medial/ulnar side. Range of motion is limited with regard to flexion. He cannot make a full fist. He does pretty good with extension. LABORATORY DATA: His white blood cell count is normal. Creatinine is 0.9. Blood cultures negative. MRI demonstrates no evidence of osteomyelitis. IMPRESSION: * Infection of right index finger near the DIP joint. There is no evidence of osteomyelitis. The area has been drained. Pathogen is unknown. 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 PLAN: Vancomycin and Zosyn will be discontinued. I am going to place him on linezolid 600 mg twice daily. I would provide him with a 2-week course of treatment. It is unclear if he will be going to the operating room today. I suspect he will likely do okay without surgery given the current appearance. If he does not need surgery, he should be able to leave the hospital soon. Thank you for allowing me to participate in his care. Philip Chery MD TID: [id number] RECEIPT: [id number] DERIK/MAYUR
== END 2025-06-26 12:19 | disposition home or self-care (01) | DRG 364 ==
LOC: ER 17:27 → ED HOLD 21:07 → SUR 3N 23:40
PROVIDERS: ADMIT Internal Medicine Sleep Medicine; ATTEND Nurse Practitioner Family
PROC: 0JBJ0ZZ Excision of Right Hand Subcutaneous Tissue and Fascia, Open Approach (ICD-10-PCS; principal; 2025-06-26 07:55)
DX: L03.011 Cellulitis of right finger (principal); L02.511 Cutaneous abscess of right hand; M65.841 Other synovitis and tenosynovitis, right hand
CPT/HCPCS: 36415; 73200; 73220; 80048; 80202; 82948; 83605; 83735; 84100; 84145; 85025; 87040; 87070; 87075; 87077; 87081; 87186; 93005; 96365; 96367; 96375; 99285; A4618; A6222; A6258; A6402; A6446; A6449; A7000; G0378; J0131; J1650; J1885; J2003; J2250; J2543; J2704; J3010; J3373; J3490; J7030; J7120